=== PATIENT | male | born 1955 | race Caucasian/White ===

== ENCOUNTER 2020-03-08 13:15 | Outpatient (REF) | payer MEDICARE, MEDICAID, SELFPAY | END 2020-03-08 13:16 | disposition home or self-care (01) | LOC: HO.LAB 13:15 | PROVIDERS: PCP Internal Medicine; Visit Provider Internal Medicine | DX: Z20.828 Contact with and (suspected) exposure to other viral communicable diseases (principal) | CPT/HCPCS: 87635 ==

== ENCOUNTER 2020-04-29 08:07 | Outpatient (REF) | payer MEDICARE, MEDICAID, SELFPAY | END 2020-04-29 08:08 | disposition home or self-care (01) | LOC: HO.LAB 08:07 | PROVIDERS: Visit Provider Internal Medicine | DX: Z20.828 Contact with and (suspected) exposure to other viral communicable diseases (principal) | CPT/HCPCS: C9803; U0003 ==

== ENCOUNTER 2020-07-01 13:52 | Outpatient (REF) | payer MEDICARE, MEDICAID, SELFPAY | END 2020-07-01 13:53 | disposition home or self-care (01) | LOC: HO.LAB 13:52 | PROVIDERS: Visit Provider Internal Medicine | DX: Z20.822 Contact with and (suspected) exposure to COVID-19 (principal) | CPT/HCPCS: 36415; C9803; U0003; U0005 ==

== ENCOUNTER 2020-07-03 09:15 | Outpatient (REF) | payer MEDICARE, MEDICAID, SELFPAY ==
[2020-07-03 09:52] LABS: Hematocrit 41.4 % (42-52); Hemoglobin 14.2 g/dl (14.0-18.0)
[2020-07-03 10:20] LABS: Anion Gap 11 (12-20); Blood Urea Nitrogen 21 mg/dL (9-16); Carbon Dioxide 30 mmol/L (22-29); Chloride 102 mmol/L (96-108); Cholesterol 160 mg/dL; Estimated Glomerular Filt Rate > 60; Glucose Random 202 mg/dL (60-115); HDL Cholesterol 35 mg/dL; LDL Cholesterol Calculated 98 mg/dl; Potassium 4.4 mmol/L (3.3-5.1); Sodium 139 mmol/L (135-145); Triglycerides 138 mg/dL
[2020-07-03 10:33] LABS: Estimated Average Glucose 186 mg/dL; Hemoglobin A1c % 8.1 %
[2020-07-03 10:45] LABS: Prostate Specific Antigen 0.86 ng/mL (<0.05-4.0)
[2020-07-03 10:59] LABS: Creatinine Urine 143.52 mg/dL; Microalbum/Creatinine Ratio Ur 33.4 ug/mg cr
[2020-07-04 06:28] LABS: Sex Hormone Binding Globulin 18 nmol/L (22-77)
[2020-07-04 09:12] LABS: Follicle Stimulating Hormone 22.2 mIU/mL (1.6-8.0); Lutenizing Hormone 10.1 mIU/mL (1.6-15.2); Prolactin 2.7 ng/mL (2.0-18.0)
[2020-07-07 16:27] LABS: Testosterone, Free 71.1 pg/mL (35.0-155.0); Testosterone, Total 309 ng/dL (250-1100)
[2020-07-09 15:52] LABS: Testosterone-Albumin 4.2 g/dL (3.6-5.1); Testosterone-Bioavailable 147.4 ng/dL (110.0-575.0); Testosterone-Free 76.5 pg/mL (46.0-224.0); Testosterone-SHBG 17 nmol/L (22-77); Testosterone-Total 353 ng/dL (250-1100)
== END 2020-07-03 09:16 | disposition home or self-care (01) ==
LOC: HO.LAB 09:15
PROVIDERS: PCP Internal Medicine; Visit Provider Nurse Practitioner Gerontology
DX: E11.9 Type 2 diabetes mellitus without complications (principal); N52.9 Male erectile dysfunction, unspecified
CPT/HCPCS: 36415; 80048; 80061; 82043; 83001; 83002; 83036; 84146; 84153; 84270; 84402; 84403; 85014; 85018

== ENCOUNTER → 2020-07-08 07:45 | Outpatient (BNVA) | payer MEDICARE, MEDICAID, SELFPAY | PROVIDERS: PCP Internal Medicine; Visit Provider Nurse Practitioner Gerontology | DX: Z76.89 Persons encountering health services in other specified circumstances (principal) | CPT/HCPCS: Q3014 ==

== ENCOUNTER 2020-09-06 08:00 | Outpatient (RCR) | payer MEDICARE, MEDICAID, SELFPAY | END 2020-09-06 15:03 | disposition other institution (70) | LOC: HO.PT 08:00 | PROVIDERS: PCP Internal Medicine; Visit Provider Physician Assistant | DX: M76.60 Achilles tendinitis, unspecified leg (principal) | CPT/HCPCS: 97033; 97110; 97140; 97161; 97530 ==

== ENCOUNTER 2020-09-24 10:22 | Outpatient (REF) | payer MEDICARE, MEDICAID, SELFPAY | END 2020-09-24 10:23 | disposition home or self-care (01) | LOC: HO.LAB 10:22 | PROVIDERS: Visit Provider Internal Medicine | DX: Z20.822 Contact with and (suspected) exposure to COVID-19 (principal) | CPT/HCPCS: C9803; U0003; U0005 ==

== ENCOUNTER 2021-01-13 06:43 | Emergency (ER) | payer MEDICARE, MEDICAID, SELFPAY | END 2021-01-13 08:00 | disposition left against medical advice (07) | PROVIDERS: Emergency Provider Emergency Medicine; PCP Internal Medicine | DX: Z20.822 Contact with and (suspected) exposure to COVID-19 (principal) ==

== ENCOUNTER 2021-01-13 06:58 | Outpatient (REF) | payer MEDICARE, MEDICAID, SELFPAY | END 2021-01-13 06:59 | disposition home or self-care (01) | LOC: HO.LAB 06:58 | PROVIDERS: PCP Internal Medicine; Visit Provider Internal Medicine | DX: Z20.822 Contact with and (suspected) exposure to COVID-19 (principal) | CPT/HCPCS: C9803; U0003; U0005 ==

== ENCOUNTER → 2021-03-19 07:32 | Outpatient (BNVA) | payer MEDICARE, MEDICAID, SELFPAY | PROVIDERS: PCP Internal Medicine; Visit Provider Nurse Practitioner Gerontology | DX: E11.65 Type 2 diabetes mellitus with hyperglycemia (principal); E11.42 Type 2 diabetes mellitus with diabetic polyneuropathy; E78.5 Hyperlipidemia, unspecified; I10 Essential (primary) hypertension | CPT/HCPCS: 82947; 99212 ==

== ENCOUNTER 2021-05-12 08:53 | Outpatient (REF) | payer MEDICARE, MEDICAID, SELFPAY ==
[2021-05-12 09:30] LABS: COVID-19 Test Negative (Negative); IDNOW Serial# 16C4AD1C
== END 2021-05-12 08:54 | disposition home or self-care (01) ==
LOC: HO.LAB 08:53
PROVIDERS: Visit Provider Internal Medicine
DX: Z20.822 Contact with and (suspected) exposure to COVID-19 (principal)
CPT/HCPCS: 36415; 87635; C9803

== ENCOUNTER → 2021-07-16 07:23 | Outpatient (BNVA) | payer MEDICARE, MEDICAID, SELFPAY | PROVIDERS: PCP Internal Medicine; Visit Provider Nurse Practitioner Gerontology | DX: E11.65 Type 2 diabetes mellitus with hyperglycemia (principal); E11.42 Type 2 diabetes mellitus with diabetic polyneuropathy; E78.5 Hyperlipidemia, unspecified; I10 Essential (primary) hypertension | CPT/HCPCS: 82947; 99212 ==

== ENCOUNTER 2021-12-06 09:50 | Emergency (ER) | payer MEDICARE, MEDICAID, SELFPAY ==
--- NOTE | ~2021-12-06 | XR_ITS ---
EXAMINATION: XR FOOT, LEFT CLINICAL INFORMATION: Toe pain. COMPARISON: None TECHNIQUE: AP, lateral, and oblique views of the left foot. FINDINGS: There is mild hallux valgus deformity first MTP joint with hypertrophic distal first metatarsal with mild soft tissue swelling. No visible acute fracture or dislocation seen no lytic process.. There is a small calcaneal heel enthesophyte. The ankle mortise and subtalar joints are normal. XR/XR foot LT 2V IMPRESSION: Hallux valgus deformity first MTP joint with mild soft tissue swelling and underlying hypertrophic bony changes distal first first metatarsal. No visible acute fracture or dislocation seen. There is a small calcaneal heel enthesophyte..
[2021-12-06 09:55] VITALS: BP 147/85; PULSE 85; RESP 18; TEMP 37.2; O2SAT 96; BMI 27.1
--- NOTE | 2021-12-06 18:37 | ED.LOWEXIN ---
HPI - Extremity Injury (Lower) General Chief Complaint: Extremity Injury, Lower Stated Complaint: fall, left toe swollen, pain Time Seen by Provider: 12/06/21 11:53 History of Present Illness HPI Narrative: Patient complains of left foot and left big toe pain after he fell twisting his foot this morning when he tripped, it hurts but he is able to walk on it Related Data Home Medications Medication Instructions Recorded Confirmed triamcinolone acetonide 0.5 % 1 applic topical .TWICE WEEK 04/14/20 07/16/21 topical cream lancets 28 gauge #100 ea 07/08/20 07/16/21 Previous Rx's Medication Instructions Recorded ezetimibe 10 mg tablet 10 mg PO DAILY #90 tabs 07/10/21 glucose 4 gram chewable tablet 12 g PO Q15M PRN hypoglycemia #60 07/10/21 (Dex4 Glucose) tabs blood sugar diagnostic (FreeStyle #300 ea 07/30/21 Lite Strips) glipizide 5 mg tablet 5 mg PO DAILY #90 tabs 07/30/21 losartan 25 mg tablet 25 mg PO DAILY #90 tabs 10/31/21 metformin 1,000 mg tablet 1,000 mg PO BID #180 tabs 10/31/21 rosuvastatin 40 mg tablet 40 mg PO DAILY #90 tabs 10/31/21 sitagliptin 100 mg tablet (Januvia) 100 mg PO DAILY #90 tabs 10/31/21 Allergies Allergy/AdvReac Type Severity Reaction Status Date / Time morphine Allergy Unknown unknown Verified 07/16/21 07:32 Review of Systems Review of Systems: Positive for left big toe and foot pain Negatives are no dizziness no weakness no fainting no syncope no numbness weakness or tingling no neck pain no back pain no head injury no headache no other extremity pains Yes all other systems are reviewed and are negative PMFSH Past Medical History Source: nursing notes reviewed Medical History Diabetes type 2, uncontrolled Erectile dysfunction Essential hypertension Hyperlipidemia LDL goal <100 Type 2 diabetes mellitus with diabetic polyneuropathy Surgical History History of arthroplasty of left shoulder History of total replacement of right shoulder joint Hx of hemorrhoidectomy Family History Family History Father No problems noted. Mother No problems noted. Social History Social History Household Members: None Alcohol intake: current Alcohol intake frequency: 0-2 drinks per day Alcohol type: wine Patient Tobacco Use Status: Former Tobacco user Tobacco use type: Cigarette Cigarette Packs Per Day: 2 Years Smoked: 30 Advance Directives: No Advance Directives Information Provided: Yes Physical Exam Vital Signs: Vital Signs: Last Vital Signs Temp 98.9 F 12/06/21 09:55 Pulse 85 12/06/21 09:55 Resp 18 12/06/21 09:55 BP 147/85 H 12/06/21 09:55 Pulse Ox 96 12/06/21 09:55 O2 Del Method 12/06/21 09:55 BMI result Body Mass Index 27.1 General appearance is no acute distress Head normocephalic atraumatic Neck is supple nontender Respiratory no distress The back full range of motion The extremities the left big toe base of the toe is ecchymotic tender, no obvious swelling or deformity, the distal foot in the area of the left big toe also has some ecchymosis and tenderness, there is full range of motion in the toe but it is uncomfortable and it is neurovascular intact and skin is intact Other extremities normal Course Course Course Narrative: X-ray did not show any broken bone and patient can walk with a mild limp and he is discharged to follow as needed with orthopedics or warehouse incentive selector Discharge Plan Discharge Clinical Impression: Sprain of foot, left, Contusion of foot, left Patient Disposition: Home, Self-Care Additional Instructions: X-ray did not show any broken bone in the toe or the foot This should improve in a few days on its own If not getting better follow with warehouse incentive selector or orthopedist Return any concerns Prescriptions: No Action triamcinolone acetonide 0.5 % cream 1 applic topical .TWICE WEEK (DME) FreeStyle Lite Strips Strip See Rx Instructions .ROUTE .MEDSUPPLY Qty: 300 3RF Rx Instructions: As directed three times a day glipizide 5 mg tablet 5 mg PO DAILY Qty: 90 1RF metformin 1,000 mg tablet 1,000 mg PO BID Qty: 180 1RF losartan 25 mg tablet 25 mg PO DAILY Qty: 90 1RF Januvia 100 mg tablet 100 mg PO DAILY Qty: 90 1RF rosuvastatin 40 mg tablet 40 mg PO DAILY Qty: 90 0RF (DME) lancets 28 gauge misc See Rx Instructions topical BID Qty: 100 Rx Instructions: As directed ezetimibe 10 mg tablet 10 mg PO DAILY Qty: 90 1RF glucose [Dex4 Glucose] 4 gram tablet,chewable 12 g PO Q15M PRN (Reason: hypoglycemia) Qty: 60 3RF Rx Instructions: until symptoms of low blood sugar are controlled Referrals: Timmy Aguilar MD [Physician] - (Left foot sprain) Pablo Reid DPM [Physician] - (Left foot bunion, pain) Interventions: ED Discharge Assessment Last Done: 12/06/21 12:05 Discharge Date/Time: 12/06/21 12:05
== END 2021-12-06 12:05 | disposition home or self-care (01) ==
PROVIDERS: Emergency Provider Emergency Medicine
DX: S93.602A Unspecified sprain of left foot, initial encounter (principal); S90.32XA Contusion of left foot, initial encounter; Y29.XXXA Contact with blunt object, undetermined intent, initial encounter; Y93.9 Activity, unspecified; Y92.9 Unspecified place or not applicable; Y99.9 Unspecified external cause status; Z87.891 Personal history of nicotine dependence; Z79.899 Other long term (current) drug therapy
CPT/HCPCS: 73620; 99283

== ENCOUNTER 2022-10-29 08:44 | Outpatient (REF) | payer MEDICARE, MEDICAID, SELFPAY ==
[2022-10-29 09:57] LABS: Hematocrit 41.2 % (42.0-52.0); Hemoglobin 13.7 g/dl (14.0-18.0); Mean Corpuscular HGB Conc 33.3 g/dl (31.0-36.0); Mean Corpuscular Hemoglobin 30.3 pg (27.0-33.0); Mean Corpuscular Volume 91.2 fL (80.0-98.0); Mean Platelet Volume 10.3 fL (9.4-12.4); Platelet Count 231 X10*3/uL (160-400); Red Blood Count 4.52 X10*6/uL (4.60-5.80); Red Cell Distribution Width 11.9 % (11.0-16.0); White Blood Count 7.3 X10*3/uL (4.8-10.8)
[2022-10-29 10:27] LABS: Appearance Urine Clear; Color Urine Dark Yellow; Glucose Urine UA Negative (Negative); Leukocyte Esterase Urine Small (1+) (Negative); Nitrite Urine Negative (Negative); PH 5.5 (5.0-9.0); UMIC TRIGGER UA YES; Urine Blood Negative (Negative); Urine Ketones Negative (Negative); Urine Protein Negative (Neg-Trace)
[2022-10-29 10:30] LABS: Alanine Aminotransferase 17 U/L (0-40); Albumin Level 4.2 g/dL (3.5-5.0); Alkaline Phosphatase 74 U/L (39-117); Anion Gap 12 (12-20); Aspartate Amino Transferase 16 U/L (5-37); Bilirubin Direct 0.2 mg/dL (0.0-0.5); Bilirubin Total 0.7 mg/dL (0.0-1.0); Blood Urea Nitrogen 18 mg/dL (9-16); Calcium 9.4 mg/dL (8.4-10.2); Carbon Dioxide 27 mmol/L (22-29); Chloride 105 mmol/L (96-108); Cholesterol 205 mg/dL; Estimated Glomerular Filt Rate > 60; Glucose Random 145 mg/dL (60-115); HDL Cholesterol 40 mg/dL; LDL Cholesterol Calculated 147 mg/dl; Potassium 4.2 mmol/L (3.3-5.1); Sodium 140 mmol/L (135-145); Total Protein 6.6 g/dL (6.5-8.0); Triglycerides 94 mg/dL
[2022-10-29 10:31] LABS: Bacteria Urine None Seen (None Seen); Hyaline Casts Urine 0-2 /LPF (0-2); Squamous Epithelial Cell Urine 0-2 /HPF (0-2)
[2022-10-29 10:55] LABS: Thyroid Stimulating Hormone 1.72 uIU/mL (0.32-4.0)
[2022-10-29 11:53] LABS: Creatinine Urine 97.21 mg/dL; Microalbum/Creatinine Ratio Ur 45.2 ug/mg cr
== END 2022-10-29 08:45 | disposition home or self-care (01) ==
LOC: HO.LAB 08:44
PROVIDERS: PCP Internal Medicine; Visit Provider Internal Medicine
DX: E11.42 Type 2 diabetes mellitus with diabetic polyneuropathy (principal); I10 Essential (primary) hypertension
CPT/HCPCS: 36415; 80048; 80061; 80076; 81001; 81003; 82043; 84443; 85027

== ENCOUNTER 2022-12-10 08:27 | Outpatient (AMB) | payer MEDICARE, MEDICAID, SELFPAY ==
--- NOTE | 2022-12-10 08:34 | A.OFFVIS_ITS ---
Intake Vital Signs 12/10/22 08:35 Height 6 ft Weight 193 lb 8 oz BMI 26.2 BP 120/68 Blood Pressure Location Lt brachial Position Sitting Pulse 74 Pulse Source Pulse Oximeter Pulse Oximetry (%) 98 Oxygen Delivery Method Room Air Intake Visit Reasons: CESARV G0439. Intake Note: Patient is here for an Annual Wellness Visit. Solid Waste Facility Supervisor Required: No Fire Protection Specialist: Fire Protection Specialist offered & declined Accompanied by: Self / Same As Patient Allergies morphine Allergy (Unknown, Verified 12/10/22 08:56) unknown HPI SWV G0439. HPI Details 67-year-old male presents to the office for a subsequent wellness visit. [facility] Medical History Bunion of unspecified foot Calcaneal spur, left Erectile dysfunction Essential hypertension Hyperlipidemia LDL goal <100 Type 2 diabetes mellitus with diabetic polyneuropathy Surgical History History of arthroplasty of left shoulder History of total replacement of right shoulder joint Hx of hemorrhoidectomy Family History Father No problems noted. Mother No problems noted. Social History Household Members: None Housing: House Alcohol intake: current Alcohol intake frequency: 0-2 drinks per day Alcohol type: wine Patient Tobacco Use Status: Former Tobacco user Tobacco use type: Cigarette Cigarette Packs Per Day: 2 Years Smoked: 30 e-Cigarette/Vaping Use: Never Used Second Hand Smoke Exposure: Yes service: No Current occupational status: retired Cognitive needs: No Hearing needs: No Vision needs: Yes (glasses) Questionnaire Medicare Wellness Checkup [age] What gender do you identify with?: male During the past 4 weeks, how much have you been bothered by emotional problems such as feeling anxious, depressed, irritable, sad or downhearted, and blue?: moderately During the past 4 weeks, has your physical & emotional health limited your social activities with family, friends, neighbors, or groups?: moderately During the past 4 weeks, how much bodily pain have you generally had?: no pain During the past 4 weeks, was someone available to help you if you needed & wanted help?: yes, some During the past 4 weeks, what was the hardest physical activity you could do for at least 2 minutes?: very light Can you get to places out of walking distance without help? (For eg., can you travel alone on buses, taxis or drive your car?): Yes Can you go shopping for groceries or clothes without someone's help?: Yes Can you prepare your own meals?: Yes Can you do your housework without help?: Yes Because of any health problems, do you need the help of another person with your personal care needs such as eating, bathing, dressing or getting around the house?: No Can you handle your own money without help?: Yes During the past 4 weeks, how would you rate your health in general?: very good During the past 4 weeks how have things been going for you?: good & bad parts about equal Are you having difficulties driving your car?: no Do you always fasten your seat belt when you are in a car?: yes, usually During past 4 weeks, have you been bothered by the following: never: Falling or dizzy when standing up, Trouble eating well?, Teeth or denture problems?, Problems using the telephone? and Tiredness or fatigue? and sometimes: Sexual problems? Have you fallen 2 or more times in the past year?: No Are you afraid of falling?: No Are you a smoker?: no During the past 4 weeks, how many drinks of wine, beer, or other alcoholic beverages did you have?: 2-5 drinks per week Do you exercise for about 20 minutes 3 or more times a week?: yes, all the time Have you been given information to help with the following?: no: Hazards in your house that might hurt you? and no: Keeping track of your medications? How often do you have trouble taking medicines the way you have been told to take them?: I always take medicine as prescribed How confident are you that you can control & manage most of your health problems?: very confident What is your race?: White Mini Mental State Exam (MMSE) Orientation What is the (year) (season) (date) (day) (month)?: year, season, date, day and month Where are we (state) (county) (town or city) (hospital) (floor)?: state, county, town or city and hospital/clinic Registration Name of 3 unrelated objects clearly and slowly, then ask patient to repeat all 3 of them. (1st repeat determines score. Make sure they can repeat all three): object 1, object 2 and object 3 Attention & Calculation (CHOOSE ONE) Ask pt to begin with 100 & count backward by 7. Stop after 5 repeats. If pt cannot ask them to spell the word WORLD backward.: 93, 86, 79 and 72 Recall Ask patient to repeat the 3 items from question #3.: object 1, object 2 and object 3 Language Show patient a wristwatch & ask what it is. Repeat for pencil.: watch and pencil Ask the patient to repeat the phrase 'No ifs, ands, or buts' after you.: correct Score Score: 22 Activity of Daily Living Bathing - sponge bath, tub bath or shower: receives no assistance (gets in/out by self, if usual bathing means Dressing - getting clothes from closets & drawers, including inner/outer garments & fasteners.: gets clothes & gets completely dressed without help Toileting - going to the 'toilet room' for urine/bowel elimination & cleaning self/arranging clothes: goes to toilet room, cleans self, arranges clothes without help Transfer: moves in & out of bed and chair without help (may use support object) Continence: controls urination/bowel movements completely by self Feeding: feeds self without help Total Score: 0 Information obtained from: patient Using telephone: independent Traveling: independent Shopping: independent Preparing meals: independent Housework: independent Taking medicine: independent Managing money: independent PHQ-9 Over the last 2 weeks, how often have you been bothered by any of the following problems? 1. Little interest or pleasure in doing things: not at all 2. Feeling down, depressed, or hopeless: not at all 3. Trouble falling or staying asleep, or sleeping too much: not at all 4. Feeling tired or having little energy: not at all 5. Poor appetite or overeating: not at all 6. Feeling bad about yourself - or that you are a failure or have let yourself or your family down: not at all 7. Trouble concentrating on things, such as reading the newspaper or watching television: not at all 8. Moving or speaking so slowly that other people could have noticed. Or the opposite - being so fidgety or restless that you have been moving around a lot more than usual: not at all 9. Thoughts that you would be better off or of hurting yourself in some way: not at all Total score: 0 Depression Screening Interpretation: Negative Source: Developed by Drs. Eron Hutchinson, Vicki Aguilera, Russell Hitchcock and colleagues, with an educational ciarra from [employer]. Thrive Questionnaire Date Thrive assessed: 10/29/22 I am a: Patient What is your living situation today?: I have a steady place to live Within the past 12 months, did the food you bought not last and you didn't have the money to get more?: Never true Within the past 12 months, did you worry whether your food would run out before you got money to buy more?: Never true Do you have trouble paying for medicines?: No Do you have trouble getting transportation to medical appointments?: No Do you have trouble paying your heating and electricity bill?: No Do you have trouble taking care of your child, family member or friend?: No Do you have trouble with day-to-day activities such as bathing, preparing meals, shopping, managing finances, etc.?: No Are you currently unemployed and looking for a job?: No Are you interested in more education?: No Please select the resources that you would like help with: None LAINA-7 AMB Questionnaire LAINA-7 Date LAINA - 7 assessed: 10/29/22 Source: Developed by Drs. Eron Hutchinson, Vicki Aguilera, Russell Hitchcock and colleagues, with an educational ciarra from [employer]. Physical Exam Vital Signs: Last Vital Signs Pulse 74 12/10/22 08:35 BP 120/68 12/10/22 08:35 Pulse Ox 98 12/10/22 08:35 Oxygen Delivery Method Room Air 12/10/22 08:35 BMI result Body Mass Index 26.2 Balance: Normal Romberg: Negative Tandem Walk: Able to Walk and Turn: Able to Rise from sit to stand: Able to Hearing Whisper test: Pass Assessment & Plan Assessment & Plan (1) Encounter for annual wellness exam in Medicare patient: Code(s): Z00.00 - Encounter for general adult medical examination without abnormal findings Quality Reporting (2019) Depression/Bipolar (159/160/161/177) PHQ-9: Total score: 0 Coding Level of Care Code Medicare Subsequent (G0439) Diagnoses Encounter for annual wellness exam in Medicare patient Z00.00
[2022-12-10 08:35] VITALS: BP 120/68; PULSE 74; O2SAT 98; BMI 26.2
== END 2022-12-10 08:54 | disposition home or self-care (01) ==
PROVIDERS: Visit Provider Internal Medicine
DX: Z00.00 Encounter for general adult medical examination without abnormal findings (principal)
CPT/HCPCS: G0439

== ENCOUNTER 2023-05-13 09:54 | Outpatient (AMB) | payer MEDICARE, MEDICAID, SELFPAY ==
--- NOTE | 2023-05-13 10:04 | AM.OFFVISNUR ---
Intake Intake Visit Reasons: FLU SHOT Allergies morphine Allergy (Unknown, Verified 12/10/22 08:56) unknown Office Procedures Flu Questionnaire Does the patient have a severe egg allergy?: No Does the patient have severe life threatening allergies?: No Does the patient have a fever or illness today?: No Has the patient ever had Guillain-Saragosa Syndrome?: No Has the patient ever had any past reaction to a flu shot?: No Immunizations flu vacc [id number] 6mos up(PF) 60 mcg(15 mcgx4)/0.5 mL IM syringe Performing Provider: Zelalem Jerez MD [facility] Administered by: Davina Manzo RN on 05/13/23 10:04 Dose Route Admin Location Dispensed Lot Number Expiration Date NDC [employer] 0.5 mL IM Left Deltoid 0.5 mL [id number] 11/28/23 [id number] [employer] VIS Given Date VIS Provided VIS Publication Date 05/13/23 Single Vaccine 21 Eligibility Eligibility Date Funding Source Not [facility] Eligible 05/13/23 Private Coding Assessment & Plan Assessment & Plan Orders: Orders Influenza [id number] Immunization Today Z23 - Encounter for immunization
== END 2023-05-13 10:05 | disposition home or self-care (01) ==
LOC: HO.HMGH 09:54
PROVIDERS: PCP Internal Medicine; Visit Provider Internal Medicine
DX: Z23 Encounter for immunization (principal)
CPT/HCPCS: 90471; 90686

== ENCOUNTER 2024-01-20 09:33 | Outpatient (AMB) | payer MEDICARE, MEDICAID, SELFPAY ==
[2024-01-20 09:35] VITALS: BP 124/78; PULSE 89; O2SAT 95; BMI 25.6
--- NOTE | 2024-01-20 09:35 | A.OFFPC_ITS ---
Vital Signs 01/20/24 09:35 Height 6 ft Weight 189 lb BMI 25.6 BP 124/78 Blood Pressure Location Lt brachial Position Sitting Pulse 89 Pulse Source Pulse Oximeter Pulse Oximetry (%) 95 Oxygen Delivery Method Room Air Intake Visit Reasons: follow up Signal Operator Technical Required: No Accompanied by: Self / Same As Patient Allergies morphine Allergy (Unknown, Verified 01/21/24 08:11) unknown Medication List - Last Reconciled 01/21/24 by Zelalem Jerez MD blood sugar diagnostic (FreeStyle Lite Strips) As directed three times a day dulaglutide (Trulicity) 1.5 mg (0.5 mL) subcut QWEEK empagliflozin (Jardiance) 25 mg PO DAILY glipizide 5 mg PO DAILY [Glucometer Check blood sugars three times a day] glucose (Dex4 Glucose) 12 grams (3 x 4 gram) PO Q15M PRN lancets As directed losartan 25 mg PO DAILY metformin 1,000 mg PO BID rosuvastatin 40 mg PO DAILY sitagliptin phosphate (Januvia) 100 mg PO DAILY tadalafil (Cialis) 20 mg PO DAILY Tobacco use date assessed: 01/20/24 Fall risk assessment: No Falls in past year Last assessed Fall Risk: 01/20/24 Dental Screening Dental Screen Date: 01/20/24 Did you have a dental visit in the last 12 months?: Yes Did you have a dental problem in the last 6 months where you did not have access to dental care?: No Was dental information given to patient?: Patient has dentist HPI follow up HPI Details 68-year-old male presents to the office to discuss his chronic medical conditions. Patient now lives in [place] for many months in a year. He is leaving next week and wants a refill on his diabetes medications. Does not check his blood sugars at home. Not following any diet or exercise regimen. Continues to smoke tobacco. Able to function and do all activities of daily living. [facility] Medical History Bunion of unspecified foot Calcaneal spur, left Type 2 diabetes mellitus with diabetic polyneuropathy Erectile dysfunction Essential hypertension Hyperlipidemia LDL goal <100 Surgical History Hx of hemorrhoidectomy History of total replacement of right shoulder joint History of arthroplasty of left shoulder Family History Father No problems noted. Mother No problems noted. Social History Household Members: None Housing: House Alcohol intake: current Alcohol intake frequency: 0-2 drinks per day Alcohol type: wine Patient Tobacco Use Status: Former Tobacco user Tobacco use type: Cigarette Cigarette Packs Per Day: 2 Years Smoked: 30 e-Cigarette/Vaping Use: Never Used Second Hand Smoke Exposure: Yes service: No Current occupational status: retired Cognitive needs: No Hearing needs: No Vision needs: Yes (glasses) Questionnaire PHQ-9 Over the last 2 weeks, how often have you been bothered by any of the following problems? 1. Little interest or pleasure in doing things: not at all 2. Feeling down, depressed, or hopeless: not at all 3. Trouble falling or staying asleep, or sleeping too much: not at all 4. Feeling tired or having little energy: not at all 5. Poor appetite or overeating: not at all 6. Feeling bad about yourself - or that you are a failure or have let yourself or your family down: not at all 7. Trouble concentrating on things, such as reading the newspaper or watching television: not at all 8. Moving or speaking so slowly that other people could have noticed. Or the opposite - being so fidgety or restless that you have been moving around a lot more than usual: not at all 9. Thoughts that you would be better off or of hurting yourself in some way: not at all Total score: 0 Depression Screening Interpretation: Negative Depression Screening Done: Yes Source: Developed by Drs. Eron Hutchinson, Vicki Aguilera, Russell Hitchcock and colleagues, with an educational ciarra from [employer]. Thrive Questionnaire Date Thrive assessed: 01/20/24 I am a: Patient What is your living situation today?: I have a steady place to live Within the past 12 months, did the food you bought not last and you didn't have the money to get more?: Never true Within the past 12 months, did you worry whether your food would run out before you got money to buy more?: Never true Do you have trouble paying for medicines?: No Do you have trouble getting transportation to medical appointments?: No Do you have trouble paying your heating and electricity bill?: No Do you have trouble taking care of your child, family member or friend?: No Do you have trouble with day-to-day activities such as bathing, preparing meals, shopping, managing finances, etc.?: No Are you currently unemployed and looking for a job?: No Are you interested in more education?: No Please select the resources that you would like help with: None Currently or been in a relationship where the following occur: No concerns reported THRIVE Score: 0 AUDIT C Alcohol Use Questionnaire (AUDIT-C) 1. How often do you have a drink containing alcohol?: 2-4 times a month 2. How many drinks containing alcohol do you have on a typical day when you are drinking?: 1 or 2 3. How often do you have six or more drinks on one occasion?: Never Total Score: 2 LAINA-7 AMB Questionnaire LAINA-7 Date LAINA - 7 assessed: 01/20/24 Feeling nervous, anxious, or on edge: 0 = Not at all Not being able to stop or control worryin = Not at all Worrying too much about different things: 0 = Not at all Trouble relaxin = Not at all Being so restless that it is hard to sit still: 0 = Not at all Becoming easily annoyed or irritable: 0 = Not at all Feeling afraid as if something awful might happen: 0 = Not at all Total LAINA-7 score (0-4 normal; 5-9 mild; 10-14 moderate; 15-21 severe): 0 Source: Developed by Drs. Eron Hutchinson, Vicki Aguilera, Russell Hitchcock and colleagues, with an educational ciarra from [employer]. Physical exam (Primary Care) Vital Signs: Last Vital Signs Pulse 89 01/20/24 09:35 BP 124/78 01/20/24 09:35 Pulse Ox 95 01/20/24 09:35 Oxygen Delivery Method Room Air 01/20/24 09:35 Care Plan Goal for BP management: Blood pressure is in range. Continue medications at same dosage. BMI result Body Mass Index 25.6 Tobacco/Smoking Status: Tobacco use Status Tobacco use date assessed 01/20/24 01/20/24 09:37 Patient Tobacco Use Status Former Tobacco user 01/20/24 09:37 Tobacco use type Cigarette 01/20/24 09:37 e-Cigarette/Vaping Use Never Used 01/20/24 09:37 Are you ready to quit: No Tobacco cessation counseling provided: No PHQ-9: PHQ-9 Score PHQ-9: Total score 0 01/20/24 09:53 Depression Screening Interpretation: Negative Thrive Assessment: Date of Thrive Assessment Date Thrive assessed 01/20/24 01/20/24 09:37 Currently or been in a relationship where the following occur: No concerns reported Const General: cooperative and healthy appearing Nutritional Appearance: well nourished Orientation/consciousness: patient oriented x3 Limitations: no limitations HENMT Head: Yes normal to inspection Eyes General: appearance normal, both eyes and all related structures Neck Neck: Yes normal visual inspection Chest Chest palpation & inspection: normal palpation of entire chest wall Resp Effort & Inspection: normal respiratory effort Neuro General: patient oriented x3 Results AMB Hemoglobin A1c AMB Hemoglobin A1c 7.8 % Last Edit by EVE Ramirez on 01/20/24 09 :53 Results Reviewed Results Reviewed: Laboratory Last Values Hgb A1c (Clinic) 7.8 % (4.0-6.0) H 01/20/24 09:39 Assessment and Plan Assessment & Plan (1) Essential hypertension: Code(s): I10 - Essential (primary) hypertension Plan: Blood pressure is in range. Continue medications at same dosage. (2) Type 2 diabetes mellitus with diabetic polyneuropathy: Code(s): E11.42 - Type 2 diabetes mellitus with diabetic polyneuropathy Plan: A1c is out of range. Medication needs to be changed. Patient is leaving for [place] next week in it would be difficult to adjust the dosage in the short time. However patient states he would continue to follow-up with a provider there. Glipizide and Jardiance was discontinued. Trulicity and Jardiance ordered in place Orders: Orders AMB Hemoglobin A1c 01/20/24 Z13.9 - Encounter for screening, unspecified Medications: New empagliflozin (Jardiance) 25 mg PO DAILY 90 tabs 1RF dulaglutide (Trulicity) 1.5 mg (0.5 mL) subcut QWEEK 2 mL 1RF Refilled losartan 25 mg PO DAILY 90 tabs 1RF metformin 1,000 mg PO BID 180 tabs 1RF rosuvastatin 40 mg PO DAILY 90 tabs 1RF Coding Level of Care Code Est Pt Level 4 (83036) Complex EM visit Add On G2211 Diagnoses Essential hypertension I10 Type 2 diabetes mellitus with diabetic polyneuropathy E11.42
== END 2024-01-20 13:38 | disposition home or self-care (01) ==
PROVIDERS: PCP Internal Medicine; Visit Provider Internal Medicine
DX: E11.42 Type 2 diabetes mellitus with diabetic polyneuropathy (principal)
CPT/HCPCS: 83036; 99214; G2211

== ENCOUNTER 2024-04-24 14:32 | Outpatient (AMB) | payer MEDICARE, MEDICAID, SELFPAY ==
[2024-04-24 14:35] VITALS: BP 130/70; PULSE 87; O2SAT 96; BMI 25.2
--- NOTE | 2024-04-24 14:43 | AM.OFFVISMDC ---
Intake Vital Signs 04/24/24 14:35 04/24/24 14:46 Height 6 ft Weight 185 lb 8 oz BMI 25.2 25.2 BP 130/70 Blood Pressure Location Lt brachial Position Sitting Pulse 87 Pulse Source Pulse Oximeter Pulse Oximetry (%) 96 Oxygen Delivery Method Room Air Intake Visit Reasons: AWV Intake Note: Patient is here for an Annual Wellness Visit. Pt requesting for referral to Ortho ([facility])due to left shoulder pain. 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: Sheep Or Calf Grader offered & declined Accompanied by: Self / Same As Patient Allergies morphine Allergy (Unknown, Verified 04/27/24 15:33) unknown Medication List - Last Reconciled 04/24/24 by Zelalem Jerez MD blood sugar diagnostic (FreeStyle Lite Strips) As directed three times a day dulaglutide (Trulicity) 1.5 mg (0.5 mL) subcut QWEEK empagliflozin (Jardiance) 25 mg PO DAILY [Glucometer Check blood sugars three times a day] glucose (Dex4 Glucose) 12 grams (3 x 4 gram) PO Q15M PRN lancets As directed losartan 25 mg PO DAILY metformin 1,000 mg PO BID rosuvastatin 40 mg PO DAILY tadalafil (Cialis) 20 mg PO DAILY Do you need a note to return to daycare/school/sports/work: No HPI AWV HPI Details 69-year-old male presents to the office requesting an annual wellness visit. In addition patient has had persistent left shoulder pain and is requesting a referral to orthopedic surgeon. He would also like a refill on his diabetic medications. REPLACED BY [facility] Medical History Bunion of unspecified foot Calcaneal spur, left Type 2 diabetes mellitus with diabetic polyneuropathy Erectile dysfunction Essential hypertension Hyperlipidemia LDL goal <100 Surgical History Hx of hemorrhoidectomy History of total replacement of right shoulder joint History of arthroplasty of left shoulder Family History Father No problems noted. Mother No problems noted. Social History Household Members: None Housing: House Alcohol intake: current Alcohol intake frequency: 0-2 drinks per day Alcohol type: wine Patient Tobacco Use Status: Former Tobacco user Tobacco use type: Cigarette Cigarette Packs Per Day: 2 Years Smoked: 30 e-Cigarette/Vaping Use: Never Used Second Hand Smoke Exposure: Yes service: No Current occupational status: retired Cognitive needs: No Hearing needs: No Vision needs: Yes (glasses) Questionnaire Medicare Wellness Checkup [age] What gender do you identify with?: male During the past 4 weeks, how much have you been bothered by emotional problems such as feeling anxious, depressed, irritable, sad or downhearted, and blue?: moderately During the past 4 weeks, has your physical & emotional health limited your social activities with family, friends, neighbors, or groups?: moderately During the past 4 weeks, how much bodily pain have you generally had?: very mild pain During the past 4 weeks, was someone available to help you if you needed & wanted help?: yes, some During the past 4 weeks, what was the hardest physical activity you could do for at least 2 minutes?: heavy Can you get to places out of walking distance without help? (For eg., can you travel alone on buses, taxis or drive your car?): Yes Can you go shopping for groceries or clothes without someone's help?: Yes Can you prepare your own meals?: Yes Can you do your housework without help?: Yes Because of any health problems, do you need the help of another person with your personal care needs such as eating, bathing, dressing or getting around the house?: No Can you handle your own money without help?: Yes During the past 4 weeks, how would you rate your health in general?: good During the past 4 weeks how have things been going for you?: pretty well Are you having difficulties driving your car?: no Do you always fasten your seat belt when you are in a car?: yes, usually During past 4 weeks, have you been bothered by the following: never: Falling or dizzy when standing up, Trouble eating well? and Problems using the telephone?, seldom: Teeth or denture problems? and Tiredness or fatigue? and sometimes: Sexual problems? Are you afraid of falling?: No Are you a smoker?: no During the past 4 weeks, how many drinks of wine, beer, or other alcoholic beverages did you have?: 2-5 drinks per week Do you exercise for about 20 minutes 3 or more times a week?: yes, all the time Have you been given information to help with the following?: no: Hazards in your house that might hurt you? and no: Keeping track of your medications? How often do you have trouble taking medicines the way you have been told to take them?: I always take medicine as prescribed How confident are you that you can control & manage most of your health problems?: very confident What is your race?: White Mini Mental State Exam (MMSE) Orientation What is the (year) (season) (date) (day) (month)?: year, season and date Where are we (state) (county) (town or city) (hospital) (floor)?: state, county and town or city Score Score: 6 Activity of Daily Living Bathing - sponge bath, tub bath or shower: receives no assistance (gets in/out by self, if usual bathing means Toileting - going to the 'toilet room' for urine/bowel elimination & cleaning self/arranging clothes: goes to toilet room, cleans self, arranges clothes without help Transfer: moves in & out of bed and chair without help (may use support object) Continence: controls urination/bowel movements completely by self Feeding: feeds self without help Total Score: 0 Information obtained from: patient Using telephone: independent Traveling: independent Shopping: independent Preparing meals: independent Housework: independent Taking medicine: independent Managing money: independent PHQ-9 Over the last 2 weeks, how often have you been bothered by any of the following problems? 1. Little interest or pleasure in doing things: not at all 2. Feeling down, depressed, or hopeless: not at all 3. Trouble falling or staying asleep, or sleeping too much: not at all 4. Feeling tired or having little energy: not at all 5. Poor appetite or overeating: not at all 6. Feeling bad about yourself - or that you are a failure or have let yourself or your family down: not at all 7. Trouble concentrating on things, such as reading the newspaper or watching television: not at all 8. Moving or speaking so slowly that other people could have noticed. Or the opposite - being so fidgety or restless that you have been moving around a lot more than usual: not at all 9. Thoughts that you would be better off or of hurting yourself in some way: not at all Total score: 0 Depression Screening Interpretation: Negative Depression Screening Done: Yes Source: Developed by Drs. Eron Hutchinson, Vicki Aguilera, Russell Hitchcock and colleagues, with an educational ciarra from [employer]. Physical Exam Vital Signs: Last Vital Signs Pulse 87 04/24/24 14:35 BP 130/70 04/24/24 14:35 Pulse Ox 96 04/24/24 14:35 Oxygen Delivery Method Room Air 04/24/24 14:35 BMI result Body Mass Index 25.2 Balance: Normal Romberg: Negative Tandem Walk: Negative Walk and Turn: Able to Rise from sit to stand: Able to Hearing Whisper test: Pass Results AMB Hemoglobin A1c AMB Hemoglobin A1c 7.1 % Last Edit by EVE Martini on 04/24/24 14:50 Results Reviewed Results Reviewed: Laboratory Last Values Hgb A1c (Clinic) 7.1 % (4.0-6.0) H 04/24/24 14:34 Assessment & Plan Assessment & Plan (1) Essential hypertension: Code(s): I10 - Essential (primary) hypertension Plan: Blood pressure is stable. (2) Type 2 diabetes mellitus with diabetic polyneuropathy: Code(s): E11.42 - Type 2 diabetes mellitus with diabetic polyneuropathy Plan: A1c is in range. Continue current medications. (3) Annual physical exam: Code(s): Z00.00 - Encounter for general adult medical examination without abnormal findings Plan: As below. [place] of care and individualized screening profile given to the patient. Orders: Orders AMB Hemoglobin A1c 04/24/24 E11.42 - Type 2 diabetes mellitus with diabetic polyneuropathy Medications: Changed From dulaglutide (Trulicity) 1.5 mg (0.5 mL) subcut QWEEK 2 mL 1RF To dulaglutide (Trulicity) 1.5 mg (0.5 mL) subcut QWEEK 6.5 mL 1RF 90 days Refilled tadalafil (Cialis) 20 mg PO DAILY 90 tabs 1RF blood sugar diagnostic (FreeStyle Lite Strips) As directed three times a day 300 ea 3RF Quality Reporting (2019) Depression/Bipolar (159/160/161/177) PHQ-9: Total score: 0 Coding Level of Care Code Medicare Subsequent (G0439) Diagnoses Essential hypertension I10 Type 2 diabetes mellitus with diabetic polyneuropathy E11.42 Annual physical exam Z00.00
[2024-04-24 14:46] VITALS: BMI 25.2
== END 2024-04-24 15:45 | disposition home or self-care (01) ==
PROVIDERS: PCP Internal Medicine; Visit Provider Internal Medicine
DX: Z00.00 Encounter for general adult medical examination without abnormal findings (principal); I10 Essential (primary) hypertension; E11.42 Type 2 diabetes mellitus with diabetic polyneuropathy

== ENCOUNTER → 2024-04-24 14:32 | Outpatient (BNVA) | payer MEDICARE, MEDICAID, SELFPAY | PROVIDERS: PCP Internal Medicine; Visit Provider Internal Medicine | DX: Z00.00 Encounter for general adult medical examination without abnormal findings (principal); E11.42 Type 2 diabetes mellitus with diabetic polyneuropathy; I10 Essential (primary) hypertension | CPT/HCPCS: 83036; 96127 ==

== ENCOUNTER 2024-10-12 13:25 | Outpatient (REF) | payer MEDICARE, SELFPAY ==
--- NOTE | ~2024-10-12 | XR_ITS ---
EXAMINATION: XR CHEST CLINICAL INFORMATION: M19.012 - Primary osteoarthritis, left shoulder COMPARISON: None available. TECHNIQUE: 2 views of the chest were obtained. FINDINGS: The cardiac size is normal. There is prominence of the aortic root noted. Hilar silhouettes appear normal. The aorta is normal in contour. Aortic mural calcifications. The lungs are clear bilaterally. There is no pneumothorax or pleural effusion. There is no focal osseous or soft tissue abnormality. There is a reverse right shoulder arthroplasty in place. There is a surgical anchor in the left humeral head with degenerative changes in the glenohumeral joint. XR/XR chest 2V IMPRESSION: 1. Prominence of the aortic root, a finding which could indicate underlying ascending aortic aneurysm. 2. No active pulmonary disease. Electronically signed by: Armin Diaz MD 10/12/2024 03:01 PM EDT
--- NOTE | 2024-10-12 14:21 | ECG_ITS ---
Test Reason : PRE OP Blood Pressure : */* mmHG Vent. Rate : 71 BPM Atrial Rate : 71 BPM P-R Int : 144 ms QRS Dur : 82 ms QT Int : 372 ms P-R-T Axes : 40 17 38 degrees QTcB Int : 404 ms Normal sinus rhythm Normal ECG When compared with ECG of 25-Sep-2010 14:04, No significant changes seen Referred By: Yeni Smalls Electronically Signed By: MAURICIO GUSMAN MD
[2024-10-12 14:52] LABS: Hematocrit 41.5 % (42.0-52.0); Hemoglobin 14.4 g/dl (14.0-18.0); Mean Corpuscular HGB Conc 34.7 g/dl (31.0-36.0); Mean Corpuscular Hemoglobin 31.6 pg (27.0-33.0); Mean Corpuscular Volume 91.2 fL (80.0-98.0); Mean Platelet Volume 10.1 fL (9.4-12.4); Platelet Count 246 X10*3/uL (160-400); Red Blood Count 4.55 X10*6/uL (4.60-5.80); Red Cell Distribution Width 11.6 % (11.0-16.0); White Blood Count 8.5 X10*3/uL (4.8-10.8)
[2024-10-12 15:04] LABS: Appearance Urine Clear; Color Urine Yellow; Glucose Urine UA 500 mg/dL (Negative); Leukocyte Esterase Urine Trace (Negative); Nitrite Urine Negative (Negative); Specific Gravity - Urine 1.025 (1.005-1.025); UMIC TRIGGER UA YES; Urine Blood Negative (Negative); Urine Ketones Trace mg/dL (Negative); Urine Protein 30 (1+) mg/dL (Neg-Trace)
[2024-10-12 15:05] LABS: Estimated Average Glucose 143 mg/dL; Hemoglobin A1c % 6.6 % (<6.0)
[2024-10-12 15:19] LABS: Alanine Aminotransferase 46 U/L (0-40); Albumin Level 4.3 g/dL (3.5-5.0); Anion Gap 12 (12-20); Aspartate Amino Transferase 34 U/L (5-37); Bilirubin Direct 0.2 mg/dL (0.0-0.5); Bilirubin Total 0.6 mg/dL (0.0-1.0); Blood Urea Nitrogen 23 mg/dL (9-16); Calcium 9.6 mg/dL (8.4-10.2); Carbon Dioxide 27 mmol/L (22-29); Chloride 107 mmol/L (96-108); Cholesterol 136 mg/dL (<200); Estimated Glomerular Filt Rate > 60; Glucose Random 184 mg/dL (60-115); HDL Cholesterol 43 mg/dL (>40); LDL Cholesterol Calculated 70 mg/dL (<100); Potassium 4.2 mmol/L (3.3-5.1); Sodium 142 mmol/L (135-145); Total Protein 6.9 g/dL (6.5-8.0); Triglycerides 117 mg/dL (<150)
[2024-10-12 15:31] LABS: Bacteria Urine None Seen (None Seen); Hyaline Casts Urine 0-2 /LPF (0-2); RBC Urine 0-2 /HPF (0-2); Squamous Epithelial Cell Urine 0-2 /HPF (0-2)
[2024-10-12 15:35] LABS: Microalbum/Creatinine Ratio Ur 71.4 ug/mg cr (<30)
[2024-10-12 15:44] LABS: TSH reflex Free T4 1.25 uIU/mL (0.32-4.0); Vitamin D 25-OH Total 35.1 ng/mL (>30)
[2024-10-12 15:50] LABS: Vitamin B12 766 pg/mL (200-900)
[2024-10-12 15:54] LABS: Alkaline Phosphatase 68 U/L (39-117)
== END 2024-10-12 13:26 | disposition home or self-care (01) ==
LOC: HO.XRAY 13:25
PROVIDERS: Absent Provider Internal Medicine; PCP Internal Medicine; Visit Provider Physician Assistant Medical
DX: Z01.818 Encounter for other preprocedural examination (principal); I10 Essential (primary) hypertension; E11.42 Type 2 diabetes mellitus with diabetic polyneuropathy; M19.012 Primary osteoarthritis, left shoulder; E78.5 Hyperlipidemia, unspecified
CPT/HCPCS: 36415; 71046; 80048; 80061; 80076; 81001; 81003; 82043; 82306; 82570; 82607; 82746; 83036; 83735; 84443; 85027; 93005; 96127; 99212

== ENCOUNTER 2024-10-12 13:25 | Outpatient (AMB) | payer MEDICARE, SELFPAY ==
[2024-10-12 13:31] VITALS: BP 116/66; PULSE 76; RESP 18; TEMP 37.2; O2SAT 94; BMI 25.1
--- NOTE | 2024-10-12 13:31 | A.OFFPC_ITS ---
Vital Signs 10/12/24 13:31 Height 6 ft Weight 184 lb 12.8 oz BMI 25.1 BP 116/66 Blood Pressure Location Lt brachial Position Sitting Respiration 18 Pulse 76 Pulse Source Pulse Oximeter Temp 98.9 F Temp Source Oral Pulse Oximetry (%) 94 Oxygen Delivery Method Room Air Intake Visit Reasons: PRE-op [facility] 11/07 -see comm Intake Note: Patient is here for a Pre-op for Lt shoulder joint replacement scheduled with Dr. Salter from [facility] on 11/07/2024. 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 Accompanied by: Self / Same As Patient Allergies morphine Allergy (Unknown, Verified 10/12/24 17:49) unknown Medication List - Last Reconciled 10/12/24 by Yeni Smalls PA-C blood sugar diagnostic (FreeStyle Lite Strips) As directed three times a day blood sugar diagnostic (FreeStyle Lite Strips) As directed three times a day [Glucometer Check blood sugars three times a day] glucose (Dex4 Glucose) 12 grams (3 x 4 gram) PO Q15M PRN lancets As directed losartan 25 mg PO DAILY metformin 1,000 mg PO BID rosuvastatin 40 mg PO DAILY sitagliptin phosphate (Januvia) 100 mg PO DAILY tadalafil (Cialis) 20 mg PO DAILY Tobacco use date assessed: 10/12/24 Fall risk assessment: No Falls in past year Last assessed Fall Risk: 10/12/24 Dental Screening Dental Screen Date: 10/12/24 Did you have a dental visit in the last 12 months?: Yes Did you have a dental problem in the last 6 months where you did not have access to dental care?: No Was dental information given to patient?: Patient has dentist HPI PRE-op [facility] 11/07 -see comm HPI Details The patient is a 69-year-old male presenting for preoperative clearance for left shoulder arthroplasty. He has a pertinent history of left shoulder issues including glenohumeral osteoarthritis and a rotator cuff tear, which were previously managed with arthroscopy. The condition was aggravated by a recent mechanical injury, resulting in a decision to proceed with shoulder replacement. His chronic conditions include controlled hypertension and type 2 diabetes mellitus, which are currently stable at this time as patient is taking losartan 25 mg, metformin 1000 mg p.o. b.i.d., Januvia 100 mg daily and tolerating treatment plan well. Last A1c level was 6.6 perform today. Patient's blood pressure is less than 130/90 which is at goal. Social History - The patient resides alone and has rent ed a room in [facility]. - There are no family members close by t o assist post-surgery. - The patient mentioned a plan to have r ehabilitation in [place] after surgery. [facility] Medical History (Updated 10/12/24 @ 18:00 by Yeni Smalls PA-C) Ascending aortic aneurysm Dyslipidemia Type 2 diabetes mellitus with hemoglobin A1c goal of less than 7.0% Pre-op evaluation Osteoarthritis of left shoulder Bunion of unspecified foot Calcaneal spur, left Type 2 diabetes mellitus with diabetic polyneuropathy Erectile dysfunction Essential hypertension Hyperlipidemia LDL goal <100 Surgical History Hx of hemorrhoidectomy History of total replacement of right shoulder joint History of arthroplasty of left shoulder Family History Father No problems noted. Mother No problems noted. Social History Household Members: None Housing: House Alcohol intake: current Alcohol intake frequency: 0-2 drinks per day Alcohol type: wine Patient Tobacco Use Status: Former Tobacco user Tobacco use type: Cigarette Cigarette Packs Per Day: 2 Years Smoked: 30; Quit 05/1999 e-Cigarette/Vaping Use: Never Used Second Hand Smoke Exposure: Yes service: No Current occupational status: retired Cognitive needs: No Hearing needs: No Vision needs: Yes (glasses) Questionnaire PHQ-9 Over the last 2 weeks, how often have you been bothered by any of the following problems? 1. Little interest or pleasure in doing things: not at all 2. Feeling down, depressed, or hopeless: not at all 3. Trouble falling or staying asleep, or sleeping too much: not at all 4. Feeling tired or having little energy: not at all 5. Poor appetite or overeating: not at all 6. Feeling bad about yourself - or that you are a failure or have let yourself or your family down: not at all 7. Trouble concentrating on things, such as reading the newspaper or watching television: not at all 8. Moving or speaking so slowly that other people could have noticed. Or the opposite - being so fidgety or restless that you have been moving around a lot more than usual: not at all 9. Thoughts that you would be better off or of hurting yourself in some way: not at all Total score: 0 Depression Screening Interpretation: Negative Depression Screening Done: Yes 40514 - PHQ-9 Billing: Yes Source: Developed by Drs. Eron Hutchinson, Vicki Aguilera, Russell Hitchcock and colleagues, with an educational ciarra from [employer]. Thrive Questionnaire Date Thrive assessed: 10/12/24 I am a: Patient What is your living situation today?: I have a steady place to live Within the past 12 months, did the food you bought not last and you didn't have the money to get more?: Often true Within the past 12 months, did you worry whether your food would run out before you got money to buy more?: Often true Do you have trouble paying for medicines?: No Do you have trouble getting transportation to medical appointments?: Yes Do you have trouble paying your heating and electricity bill?: No Do you have trouble taking care of your child, family member or friend?: No Do you have trouble with day-to-day activities such as bathing, preparing meals, shopping, managing finances, etc.?: No Are you currently unemployed and looking for a job?: I choose not to answer this question Are you interested in more education?: No Please select the resources that you would like help with: None Currently or been in a relationship where the following occur: I choose not to answer THRIVE Score: 3 AUDIT C Alcohol Use Questionnaire (AUDIT-C) 1. How often do you have a drink containing alcohol?: 2-3 times a week 2. How many drinks containing alcohol do you have on a typical day when you are drinking?: 1 or 2 3. How often do you have six or more drinks on one occasion?: Less than monthly Total Score: 4 Score Reviewed/Action Taken: Yes LAINA-7 AMB Questionnaire LAINA-7 Date LAINA - 7 assessed: 10/12/24 Feeling nervous, anxious, or on edge: 0 = Not at all Not being able to stop or control worryin = Not at all Worrying too much about different things: 0 = Not at all Trouble relaxin = Not at all Being so restless that it is hard to sit still: 0 = Not at all Becoming easily annoyed or irritable: 0 = Not at all Feeling afraid as if something awful might happen: 0 = Not at all Total LAINA-7 score (0-4 normal; 5-9 mild; 10-14 moderate; 15-21 severe): 0 Source: Developed by Drs. Eron Hutchinson, Vicki Aguilera, Russell Hitchcock and colleagues, with an educational ciarra from [employer]. LAINA-7 Assessment Billing LAINA-7 Assessment Tool: LAINA-7 Assessment 30318 Review of Systems Const Details: - Musculoskeletal: Reports left shoulder pain and history of rotator cuff tear and osteoarthritis. - Cardiovascular: Denies chest pain or shortness of breath. - Respiratory: Denies shortness of breath. - Metabolic/Endocrine: Reports type 2 diabetes mellitus, managed with medication. Physical exam (Primary Care) Vital Signs: Last Vital Signs Temp 98.9 F 10/12/24 13:31 Pulse 76 10/12/24 13:31 Resp 18 10/12/24 13:31 BP 116/66 10/12/24 13:31 Pulse Ox 94 10/12/24 13:31 Oxygen Delivery Method Room Air 10/12/24 13:31 Care Plan Goal for BP management: <130/90 at Goal BMI result Body Mass Index 25.1 BMI Assessment/Plan discussion: High BMI High, discussed plan: lifestyle, weight reduction, dietary, physical activity and alcohol moderation Tobacco/Smoking Status: Tobacco use Status Tobacco use date assessed 10/12/24 10/12/24 13:44 Patient Tobacco Use Status Former Tobacco user 10/12/24 13:32 Tobacco use type Cigarette 10/12/24 13:32 e-Cigarette/Vaping Use Never Used 10/12/24 13:32 PHQ-9: PHQ-9 Score PHQ-9: Total score 0 10/12/24 17:52 Depression Screening Interpretation: Negative Thrive Assessment: Date of Thrive Assessment Date Thrive assessed 10/12/24 10/12/24 13:44 Currently or been in a relationship where the following occur: I choose not to answer Const Other: Appearance: Alert. Oriented X3. No acute distress. Head: Normal external exam. Normocephalic. Atraumatic. Eyes: Pupils are equal, round, and reactive to light. Extraocular movements intact. Conjunctiva and sclera normal. Eyelids normal. Throat: Pharynx normal. Uvula midline. Moist mucous membranes. Neck: Normal inspection. Neck supple. Full range of motion. No adenopathy. Thyroid Normal. No meningeal signs. No neck mass noted. Cardiovascular: Normal heart rate and rhythm. Heart sound normal. No murmurs noted. Pulses normal throughout. Blood pressure is 116/66. Respiratory: No respiratory distress. Painless inspiration. Breath sounds normal. No wheezes/rales/rhonchi noted. Chest nontender. No accessory muscle usage noted or decreased air movement noted. Abdomen: Soft and nontender. Bowel sounds normal in all 4 quadrants. No distention noted. No organomegaly noted. Back: Full range of motion noted. Skin: Skin warm and dry. Normal skin color. Normal skin turgor. No rashes/lesions/lacerations noted. Extremities: Patient with chronic pain to left shoulder with decreased range of motion. There is no obvious joint effusion and there is no pitting edema. Patient has normal pulses. Otherwise moving all other extremities. Neuro: Oriented X 3. No motor deficit. No sensory deficit. Reflexes normal. Coding Level of Care Code Est Pt Level 4 (45285) Complex EM visit Add On G2211 Diagnoses Pre-op evaluation Z01.818 Osteoarthritis of left shoulder M19.012 Type 2 diabetes mellitus with hemoglobin A1c goal of less than 7.0% E11.9 Dyslipidemia E78.5 Additional Codes LAINA-7 Assessment Billing - LAINA-7 Assessment Tool: LAINA-7 Assessment 91929 ([id number]) PHQ-9 - 35147 - PHQ-9 Billing: Yes ([id number]) Time Spent (min) 45 Assessment & Plan Assessment & Plan (1) Pre-op evaluation: Code(s): Z01.818 - Encounter for other preprocedural examination Category: Medical Plan: Patient is scheduled for left shoulder arthroplasty with new [facility] on 11/07/2024. Labs reviewed and patient's red blood cells 4.55. Hematocrit 41.5. BUN is 23. Random glucose 184. A1c level 6.6. ALT 46. All other labs are within normal limits. UA revealed glucose. Chest x-ray obtained revealed prominence of aortic root a finding which could indicate underlying ascending aortic aneurysm. No active pulmonary disease. EKG is normal sinus rhythm with a ventricular rate of 71 with a normal NC interval normal QRS duration normal QT/QTC interval no acute ischemic change are noted. Will have echocardiogram to evaluate the possible underlying ascending aortic aneurysm. Recording preop clearance, the patient is at acceptable risk for proposed surgery. Reviewed with the patient that no surgery is completely free of risk and that this examination is to assist the surgeon reviewing informed consent. His RCRI class 1 cardiovascular risk is 0. (2) Osteoarthritis of left shoulder: Code(s): M19.012 - Primary osteoarthritis, left shoulder Category: Medical Plan: Preoperative workup with blood work was ordered and reviewed. Chest x-ray reviewed. EKG reviewed. I attempted to send the patient home health aide for post surgery although they are recommending this be set up by the orthopedic surgeon or after the patient has completed surgery. Patient is scheduled for surgery on 11/07/2024. Patient is cleared at this time for surgery. (3) Type 2 diabetes mellitus with hemoglobin A1c goal of less than 7.0%: Code(s): E11.9 - Type 2 diabetes mellitus without complications Category: Medical Plan: Plan involves continued management with Metformin and Januvia, given renal concerns with previous regimens. Monitor renal function closely. Patient may have to discontinue diabetic medication 24-48 hours prior to surgery to prevent hypoglycemic episodes during surgery. Refer to orthopedic surgeon. Condition is chronic and stable will continue to monitor. (4) Dyslipidemia: Code(s): E78.5 - Hyperlipidemia, unspecified Category: Medical Plan: Maintain current therapy with Rovarstatin; lipid levels to be assessed as part of a preoperative metabolic panel. Condition is chronic and stable continue to monitor. Plan Plan Patient was informed and verbally consented to the use of an ambient scribe for clinic note documentation during this visit. 1. Left Glenohumeral Osteoarthritis Plan includes preoperative workup with blood work, EKG, and chest x-ray in preparation for surgery on November 07, 2024. Explore home health aide post-surgery. 2. Rotator Cuff Tear, Left Shoulder Plan entails arthroplasty after conservative treatment failure, confirmed by MRI findings. 3. Essential Hypertension Plan consists of maintaining current control with Losartan; ensure continued normotensive status through surgery. 4. Type 2 Diabetes Mellitus With Chronic Kidney Disease Plan involves continued management with Metformin and Januvia, given renal concerns with previous regimens. Monitor renal function closely. 5. Dyslipidemia Maintain current therapy with Rovarstatin; lipid levels to be assessed as part of a preoperative metabolic panel. During the visit, we extensively reviewed the patient's preparation for left shoulder arthroplasty, including the need for comprehensive preoperative testing such as CBC, CMP, a chest x-ray, and EKG. We addressed medication management issues, assuring prescription refills were sent, and emphasized the stability of blood pressure management. We discussed prior problems with medication refill logistics and how that may have impacted management. We considered post-surgical support measures, requesting that home health aide and visiting nurse services be coordinated. The balance and changes in his diabetic regimen were also reviewed, acknowledging previous challenges with Jardiance and Trulicity causing renal impacts. Orders: Orders ECG 12 lead EKG Today M19.012 - Primary osteoarthritis, left shoulder, Z01.818 - Encounter for other preprocedural examination Prothrombin Time INR Today M19.012 - Primary osteoarthritis, left shoulder, Z01.818 - Encounter for other preprocedural examination CA echo transthoracic complete Today I71.21 - Aneurysm of the ascending aorta, without rupture Magnesium Today Z00.00 - Encounter for general adult medical examination without abnormal findings Vitamin B12 and Folate Today Z00.00 - Encounter for general adult medical examination without abnormal findings Vitamin D 25-OH Total Today Z00.00 - Encounter for general adult medical examination without abnormal findings TSH reflex Free T4 Today Z00.00 - Encounter for general adult medical examination without abnormal findings XR chest 2V Today M19.012 - Primary osteoarthritis, left shoulder, Z01.818 - Encounter for other preprocedural examination Medications: New sitagliptin phosphate (Januvia) 100 mg PO DAILY 90 tabs 1RF Refilled losartan 25 mg PO DAILY 90 tabs 1RF rosuvastatin 40 mg PO DAILY 90 tabs 1RF blood sugar diagnostic (FreeStyle Lite Strips) As directed three times a day 300 ea 3RF metformin 1,000 mg PO BID 180 tabs 1RF tadalafil (Cialis) 20 mg PO DAILY 90 tabs 1RF glucose (Dex4 Glucose) until symptoms of low blood sugar are controlled 12 grams (3 x 4 gram) PO Q15M PRN 60 tabs 3RF hypoglycemia E11.65 - Type 2 diabetes mellitus with hyperglycemia Patient Instructions: - Complete preoperative testing, including blood work, chest x-ray, and EKG, at the lab today. - Attend your shoulder arthroplasty scheduled for November 07, 2024. - Follow-up with the pharmacy to ensure all medications are ready for pickup. - Keep record of blood sugar levels with your glucometer and ensure glucose monitoring supplies are available. - If issues with medication arise, contact the office immediately. - Await contact from home health service providers post-surgery and notify if services are not arranged. - Ensure no strenuous activities with the shoulder until after surgical intervention, and follow post-operative rehabilitation instructions once provided.
== END 2024-10-12 15:02 | disposition home or self-care (01) ==
LOC: HO.HMCH 13:26
PROVIDERS: PCP Internal Medicine; Visit Provider Physician Assistant Medical
DX: Z01.818 Encounter for other preprocedural examination (principal); M19.012 Primary osteoarthritis, left shoulder; E11.9 Type 2 diabetes mellitus without complications; E78.5 Hyperlipidemia, unspecified

== ENCOUNTER → 2024-10-12 14:21 | Outpatient (BNV) | payer MEDICARE, SELFPAY | PROVIDERS: Absent Provider Internal Medicine; PCP Internal Medicine; Visit Provider Internal Medicine Cardiovascular Disease | DX: I10 Essential (primary) hypertension (principal) | CPT/HCPCS: 93010 ==

== ENCOUNTER → 2024-10-12 14:37 | Outpatient (BNV) | payer MEDICARE, SELFPAY | PROVIDERS: Absent Provider Internal Medicine; PCP Internal Medicine; Visit Provider Radiology Diagnostic Radiology | DX: Z01.818 Encounter for other preprocedural examination (principal) | CPT/HCPCS: 71046 ==